=== PATIENT | female | born 1975 | race Two or more races ===

== ENCOUNTER 2023-08-18 06:54 | Day surgery (SDC) | payer OTHER ==
[2023-08-14 11:37] LABS: PH,URINE 5.5 (5.0-8.0); URINE APPEARANCE Clear; URINE BILIRRUBIN Negative (NEGATIVE); URINE BLOOD Negative; URINE COLOR Yellow; URINE GLUCOSE Negative (NEGATIVE); URINE LEUKOCYTE Small; URINE NITRATE Negative; URINE PROTEIN Negative (NEGATIVE); URINE UROBILINOGEN 0.2 E.U./dl
[2023-08-14 11:41] LABS: URINE BACTERIA 26.4 uL (0.0-1933); URINE RBC 6.4 uL (0.0-20.8); URINE WBC 4.4 uL (0.0-23.2)
[2023-08-14 11:44] LABS: HEMOGLOBIN 12.6 g/dL (12.0-15.00); MEAN CELL VOLUME 91.6 fL (80.00-100.00); MEAN CORPUSCULAR HEMOGLOBIN 32.2 pg (27.00-32.0); MEAN CORPUSCULAR HGB CONC 35.2 g/dl (32.0-36.0); PLATELET COUNT 242 K/uL (150-450); RED BLOOD COUNT 3.93 M/uL (4.00-6.00); RED CELL DISTRIBUTION WIDTH 12.6 % (11.5-14.5)
[2023-08-14 12:06] LABS: ALBUMIN 4.3 gm/dL (3.4-5.0); BILIRUBIN TOTAL 0.76 mg/dL (0.3-1.2); CALCIUM 9.1 mg/dL (8.5-10.1); CHOL HDL RATIO 3.3 (0-5.0); CREATININE SERUM 0.82 mg/dL (0.55-1.02); GFR 74.41; GLOBULINA 3.5 G/DL (2.4-3.5); POTASSIUM 3.68 mEq/L (3.5-5.1); TOTAL PROTEIN 7.8 gm/dL (6.4-8.2)
[2023-08-14 12:18] LABS: INR 1.06; PROTHROMBIN TIME 11.1 SECONDS (9.0-11.5)
[~2023-08-18 06:54] MED LIST: ADDERALL 20 MG20 MG
[2023-08-18] MEDS ORDERED: TRAM1TAB98 PO (09:44)
[2023-08-18] MEDS ORDERED: COLACE100 MG PO (09:44)
[2023-08-18] MEDS ORDERED: NEURONTIN300 MG PO (10:07)
== END 2023-08-18 16:00 | disposition home or self-care (01) ==
LOC: CIR.AMB 06:54
PROVIDERS: ATTEND Surgery
DX: K60.2 Anal fissure, unspecified (principal); K60.3 Anal fistula; K62.89 Other specified diseases of anus and rectum; I10 Essential (primary) hypertension; Z88.1 Allergy status to other antibiotic agents; Z20.822 Contact with and (suspected) exposure to COVID-19